=== PATIENT | female | born 1975 | race Caucasian/White ===

== ENCOUNTER 2024-03-14 17:46 | Emergency (ER) | payer SELFPAY ==
[2024-03-14 18:15] VITALS: BMI 25.1
[2024-03-14 18:32] LABS: % Basophils 0.4 % (0-2); % Eosinophils 0.3 % (0-6); % Immature Granulocytes 0.4 % (0-0.5); % Lymphocytes 13.7 % (20.5-51.1); % Monocytes 4.2 % (1.7-9.3); Absolute Basophils 0.1 10^3/uL (0-0.2); Absolute Immature Granulocytes 0.1 10^3/uL (0-0.05); Absolute Lymphocytes 2.2 10^3/uL (1.2-3.4); Absolute Monocytes 0.7 10^3/uL (0.1-0.6); Absolute Neutrophils 12.7 10^3/uL (1.4-6.5); Hematocrit 34.7 % (37.0-47.0); Hemoglobin 12.3 g/dL (12.0-16.0); Mean Corp Hgb Conc. 35.4 g/dL (33.0-37.0); Mean Corpuscular Hgb 30.5 pg (27.0-31.0); Mean Corpuscular Volume 86.1 fL (81.0-99.0); Mean Platelet Volume 11.3 fL (7.4-10.4); Nucleated Red Blood Cells % 0 %; Platelet Count 270 10^3/uL (130-400); Red Blood Cell Count 4.03 10^6/uL (4.20-5.40); Red Cell Dist. Width 12.4 % (11.5-14.5); Urine Albumin Negative (Neg - Trace); Urine Bilirubin Negative (Negative); Urine Character Clear (Clear); Urine Color Yellow; Urine Glucose Negative (Negative); Urine Ketone 3+ (Negative); Urine Leukocyte Trace (Negative); Urine Nitrite Negative (Negative); Urine Occult Blood 2+ (Negative); Urine Specific Gravity 1.015 (<1.030); Urine Urobilinogen Negative (Neg - 1+); White Blood Cell Count 15.6 10^3/uL (4.8-10.8)
[2024-03-14] MEDS: TORADOL 30 MG IV (18:35)
[2024-03-14] MEDS: ZOFRAN 4 MG IV ×2 (18:36→20:47)
[2024-03-14 18:42] LABS: Urine Red Blood Cell 16-20 /HPF (0-2); Urine Squamous Cell >30 /LPF (Few)
[2024-03-14 18:43] LABS: Urine Bacteria Few (Negative)
[2024-03-14 18:46] LABS: ALT (SGPT) 16 U/L (0-35); AST (SGOT) 23 U/L (14-36); Albumin 4.5 g/dl (3.5-5.0); Alkaline Phosphatase 36 U/L (38-126); Blood Urea Nitrogen 9 mg/dl (7-17); Carbon Dioxide 25 mmol/L (22-30); Chloride 102 mmol/L (98-107); Estimated Creatinine Clearance 93 ml/min; Glucose 100 mg/dl (70-99); Lipase 39 U/L (23-300); Potassium 3.8 mmol/L (3.5-5.1); Sodium 136 mmol/L (135-145); Total Bilirubin 0.4 mg/dl (0.2-1.3); Total Protein 7.2 g/dl (6.3-8.2); eGFR > 60.00
--- NOTE | 2024-03-14 18:49 | ED.GENMED ---
History of Present Illness
General
Chief Complaint: Abdominal Pain
Source: patient
Time Seen by Provider: 03/14/24 18:12
Travel History
Have you had any contact with someone who has COVID-19?: No
Do you have any symptoms of coronavirus? Fever > 100 degrees, chills, cough, shortness of breath, sore throat, loss of taste or smell, muscle aches, or headache?: No
History of Present Illness
History of Present Illness:
48-year-old female with no significant past medical history presenting to the emergency department for evaluation of sudden onset left lower quadrant abdominal pain described to be sharp, nonradiating, constant and gradually worsening since 3 PM
today accompanied with nausea and 1 episode of nonbloody nonbilious emesis. Patient states that she attempted to take 3 Advil but shortly after taking the vomited this all back up. She denies any fevers, chills, rigors, bowel changes or urinary
symptoms, back or flank pain, vaginal bleeding or discharge. Surgical history was noted for previous C-sections and tummy tuck. Social history noncontributory. No other concerns.
Past History
Past History
ED Past Medical History: None and Other ( �4 breast augmentation)
ED Past Surgical History: Orthopedic and Other (abdominoplasty/breast jun 02)
Social History
Tobacco: Non-smoker
Alcohol: Occasional
Drug: None
Personal:
Living: with family
Employment: Not employed
Family History
Family History: Other (Father recently of an NH)
Review of Systems
Review of Systems
All Other Systems: ROS reviewed and negative except as documented in HPI and ROS
Phy Exam
Physical Exam
Physical Exam:
GENERAL: Alert , appears very uncomfortable
EYE: clear conjunctiva b/l
HEAD: NCAT
ENT: o/p clr, mmm.
CARDIAC: Regular rate and rhythm, no murmur .
LUNGS: Clear breath sounds bilaterally, no acute respiratory distress, no wheezes/rales/rhonchi
ABDOMEN: Soft, mild LLQ ttp, no r/g, no cvat
NEUROLOGICAL: Alert and oriented
SKIN: Warm and dry, skin intact.
MUSCULOSKELETAL: well perfused.
PSYCH: Normal and appropriate interaction.
Scores
Heart Failure Risk
Heart Failure Risk Score: Not Applicable
Heart Score for Chest Pain Patients
STEMI patient?: Not applicable
Withdrawal Assessment of Alcohol
Withdrawal Assessment Completed?: Not applicable
Course
Orders/Labs/Results
Orders:
Orders
03/14/24 18:12
IV Insert/Care/Rem.- Treatment PRN
03/14/24 18:26
Complete Blood Count/With Diff Urgent
Comprehensive Metabolic Panel Urgent
HCG, Serum Qualitative Screen Urgent
Comment: ADD ON
Lipase Urgent
Urinalysis Reflex To Culture Urgent
Date Specimen was Collected: 03/14/24
Time Specimen was Collected: 18:14
Urine Microscopic Reflex Cult Urgent
03/14/24 18:32
CT Abd/pelvis W Iv Cont Urgent
Comment:
Reason For Exam: LLQ pain, sudden onset
Ketorolac [Toradol] 30 mg IV NOW STA
Ondansetron Injectable [Zofran] 4 mg IV NOW STA
03/14/24 18:44
Add On- LAB Urgent
Tests Added?: HCG qual
03/14/24 20:10
HYDROmorphone [Dilaudid] 0.5 mg IV NOW STA
Ondansetron Injectable [Zofran] 4 mg IV NOW STA
03/14/24 20:11
Transvaginal US [US Pelvis W Transvag Combined] Urgent
Comment:
Reason For Exam: left lower abd pain
Abnormal Lab Results
03/14/24
18:26
WBC 15.6 H 10^3/uL
(4.8-10.8)
RBC 4.03 L 10^6/uL
(4.20-5.40)
Hct 34.7 L %
(37.0-47.0)
MPV 11.3 H fL
(7.4-10.4)
Abs Immat Gran (auto) 0.1 H 10^3/uL
(0-0.05)
Absolute Neuts (auto) 12.7 H 10^3/uL
(1.4-6.5)
Absolute Monos (auto) 0.7 H 10^3/uL
(0.1-0.6)
Neutrophils % 81.0 H %
(42.2-75.2)
Lymphocytes % 13.7 L %
(20.5-51.1)
Glucose 100 H mg/dl
(70-99)
Alkaline Phosphatase 36 L U/L
(38-126)
Urine Ketones 3+ A
(Negative)
Ur Occult Blood Reflex 2+ A
(Negative)
Leukocyte Esterase Rfl Trace A
(Negative)
Urine RBC 16-20 A /HPF
(0-2)
Urine Bacteria (Reflex) Few A
(Negative)
03/14/24 18:26
03/14/24 18:26
Vital Signs
Initial and Last Documented VS:
Initial Vital Signs
Temp Pulse Resp Pulse Ox
97.8 F 60 20 100
03/14/24 17:47 03/14/24 17:47 03/14/24 17:47 03/14/24 17:47
Last Documented Vital Signs
Temp Pulse Resp Pulse Ox
97.8 F 60 20 100
03/14/24 17:47 03/14/24 17:47 03/14/24 17:47 03/14/24 17:47
MDM/Problems Addressed
Differential Diagnosis Includes:
Renal/ureteral colic, urinary tract infection, ovarian cyst, diverticulitis
MDM/Problems Addressed:
48-year-old female presenting to the emergency department for evaluation of sudden left lower quadrant abdominal pain around 3 PM accompanied with nausea and vomiting. Pain and nausea persist. Patient appears quite uncomfortable on exam here.
Toradol and Zofran ordered for symptomatic relief. Labs and urinalysis ordered as well. Will obtain a CT scan for further evaluation. Reassessment following.
*Radiology
Radiology exam reviewed: radiology read reviewed
*Pulse Oximetry
Patient hypoxic: no
*Critical Care Note
Total Time (30-74mins, 75-104mins- exclusive of procedures): Not Applicable
Comment
Comment:
Patient CT scan shows a right adnexal cyst but an otherwise unremarkable study. When I went to reevaluate she was still noting significant pain within the left lower quadrant. Will treat with Dilaudid and additional Zofran. Due to the continued
pain decision was made to also obtain a pelvic ultrasound to further assess.
Patient Management
Escalation/DeEscalation of care consider admission/obs:
Patient's ultrasound returned showing a 5 cm complex right ovarian cyst. Possibly referred pain but otherwise I am not suspicious for torsion. Patient will follow-up with her [employer]. She does note significantly improved pain and nausea. She feels
comfortable being discharged home. Aware of return precautions to the ER but otherwise stable for discharge home.
ED Attending Note
-
Portions of this chart may have been created with voice recognition software.� Occasional wrong word or��sound alike� substitutions may have occurred due to the inherent limitations of voice recognition software.
Discharge Plan
Departure
Patient Disposition: Home (Routine Discharge)
Date of Disposition: 03/14/24
Time of Disposition: 22:23
Patient with high blood pressure during this ER visit?: No
Discharge Problem:
Abdominal pain, Cyst of right ovary
Instructions: Abdominal Pain
Prescriptions:
New
ondansetron 4 mg tablet,disintegrating
4 mg PO TIDPRN PRN (Reason: nausea/vomiting) Qty: 10 0RF
Referrals:
Paulino Ryan MD [Family Provider] -
Interventions
Interventions:
*Risk Screen - Suicide Last Done: 03/14/24 17:47
*General Assessment Last Done: 03/14/24 17:47
*Neglect/Abuse Screening Last Done: 03/14/24 17:47
ED- Fall Risk Assessment Last Done: 03/14/24 18:15
*ED COVID-19 Vaccine History Last Done: 03/14/24 18:15
YU-Vdfhtw-Ieqctknkcj Assessment Last Done: 03/14/24 18:15
Discharge Date and Time
Print Language: BELGIAN
[2024-03-14 19:01] LABS: HCG, Serum Qualitative Screen Negative
[2024-03-14] MEDS: DILAUDID 0.5 MG IV (20:47)
[2024-03-14 22:50] VITALS: BP 140/83
== END 2024-03-14 22:51 | disposition home or self-care (01) ==
LOC: EMR 17:46
PROVIDERS: Physician Assistant Medical; EMERGENCY PHYSICIAN Emergency Medicine; FAMILY PHYSICIAN Internal Medicine Geriatric Medicine
DX: R10.32 Left lower quadrant pain (principal); N83.201 Unspecified ovarian cyst, right side
CPT/HCPCS: 99284; 96374; 96375; 96376; 74177; 76830; 76856; 80053; 81003; 81015; 83690; 84703; 85025; Q9967

== ENCOUNTER → 2025-06-25 15:10 | Outpatient (REF) | payer BC, SELFPAY ==
[2025-06-25 15:59] LABS: Iron 64 ug/dl (37-170)
[2025-06-25 16:09] LABS: Total Iron Binding Capacity 304 ug/dl (265-497)
[2025-06-25 16:34] LABS: Ferritin 38.8 ng/ml (6.24-137)
== END ==
LOC: REG 15:10
PROVIDERS: ATTENDING PHYSICIAN Nurse Practitioner Primary Care
DX: L65.9 Nonscarring hair loss, unspecified (principal)
CPT/HCPCS: 36415; 82728; 83540; 83550

== ENCOUNTER → 2025-06-28 14:52 | Outpatient (REF) | payer BC, SELFPAY | LOC: WDC 14:52 | PROVIDERS: ATTENDING PHYSICIAN Nurse Practitioner Primary Care | DX: Z12.31 Encounter for screening mammogram for malignant neoplasm of breast (principal) | CPT/HCPCS: 77063; 77067 ==

== ENCOUNTER → 2025-06-29 08:15 | Outpatient (REF) | payer BC, SELFPAY ==
[2025-06-29 08:55] LABS: Hematocrit 41.7 % (37.0-47.0); Hemoglobin 13.8 g/dL (12.0-16.0); Mean Corp Hgb Conc. 33.1 g/dL (33.0-37.0); Mean Corpuscular Volume 92.9 fL (81.0-99.0); Nucleated Red Blood Cells % 0 %; Platelet Count 339 10^3/uL (130-400); Red Cell Dist. Width 12.6 % (11.5-14.5)
[2025-06-29 09:01] LABS: Urine Character Slightly Cloudy (Clear)
[2025-06-29 09:20] LABS: Urine Squamous Cell >30 /LPF (Few)
[2025-06-29 09:22] LABS: ALT (SGPT) 17 U/L (0-35); AST (SGOT) 20 U/L (14-36); Albumin 5.1 g/dl (3.5-5.0); Alkaline Phosphatase 24 U/L (38-126); Blood Urea Nitrogen 7 mg/dl (7-17); Calcium 10.5 mg/dl (8.4-10.2); Carbon Dioxide 29 mmol/L (22-30); Chloride 104 mmol/L (98-107); Glucose 99 mg/dl (70-99); HDL Cholesterol 73 mg/dl; LDL Cholesterol, Calculated 103 mg/dl; Potassium 4.8 mmol/L (3.5-5.1); Sodium 141 mmol/L (135-145); Total Protein 7.9 g/dl (6.3-8.2); Very Low Density Lipoprotein 16 mg/dl (0-30); eGFR > 60.00
[2025-06-29 09:44] LABS: Vitamin D, 25-OH*** 46.1 ng/mL (30-80)
== END ==
LOC: REG 08:15
PROVIDERS: ATTENDING PHYSICIAN Nurse Practitioner Primary Care
DX: E78.00 Pure hypercholesterolemia, unspecified (principal); R10.32 Left lower quadrant pain
CPT/HCPCS: 36415; 80053; 80061; 81003; 81015; 82306; 84439; 84443; 85025

== ENCOUNTER → 2025-07-07 10:58 | Outpatient (REF) | payer BC, SELFPAY ==
[2025-07-07 12:08] LABS: Calcium 10.4 mg/dl (8.4-10.2)
[2025-07-07 12:11] LABS: Urine Character Clear (Clear)
[2025-07-07 12:27] LABS: Free T3 3.86 pg/ml (2.77-5.27)
[2025-07-07 12:33] LABS: Urine Red Blood Cell 0-2 /HPF (0-2); Urine Squamous Cell >30 /LPF (Few); Urine White Cell 0-2 /HPF (0-5)
[2025-07-07 12:41] LABS: TSH 0.83 uIU/ml (0.47-4.68)
== END ==
LOC: REG 10:58
PROVIDERS: ATTENDING PHYSICIAN Nurse Practitioner Primary Care
DX: R94.6 Abnormal results of thyroid function studies (principal); E83.52 Hypercalcemia; R82.90 Unspecified abnormal findings in urine
CPT/HCPCS: 36415; 81003; 81015; 82330; 83970; 84439; 84443; 84481

== ENCOUNTER → 2025-07-11 08:35 | Outpatient (REF) | payer BC, SELFPAY | LOC: WDC 08:35 | PROVIDERS: ATTENDING PHYSICIAN Nurse Practitioner Primary Care | DX: R92.8 Other abnormal and inconclusive findings on diagnostic imaging of breast (principal) | CPT/HCPCS: 76642 ==